=== PATIENT | female | born 1940 | race Caucasian/White ===

== ENCOUNTER 2019-01-30 13:07 | Emergency (ER) | payer OTHER, BC ==
--- NOTE | 2019-01-30 13:14 | PDOC ---
History of Present Illness - General Stated Complaint: DIZZINESS Time Seen by Provider: 01/30/19 13:13 - History of Present Illness Initial Comments: 01/30/19 13:13 Ms. More is an 78 yo female w/ pmh of alzheimer's dementia, squamous cell carcinoma of the skin, s/p cadaveric kidney transplant (unknown cause) who presents for evaluation of tiredness earlier today. Patient was discharged this morning from [facility] after admission for the last week for UTI and flu. Patient went to get food w/ family who reports she became tired and rested her head on table while at breakfast. Speech was slightly altered although son believes this was due to her face being pressed against table. EMS was called as patient would not get up; patient was back to normal self by the time EMS had arrived. Per family she has had similar instances in the past when her blood pressure dropped. Ms. More has no complaints at this time. The patient denies chest pain, shortness of breath, headache and dizziness. Denies fever, chills, nausea, vomit, diarrhea and constipation. Denies dysuria, frequency, urgency and hematuria. tPA Exclusion Checklist 0-3hr - Time Elapsed Date last known well: 01/30/19 Time last known well: 12:00 Elaspsed time: Day(s) and 3 Hour(s) and 25 Minutes - Thrombolytic Therapy Candidate Is the patient eligible for Thrombolytic Therapy?: No - Exclusion Criteria 0-3hr SBP greater than 185 or DBP greater than 110mmHg despite tx: No Recent IC/spinal surgery,head trauma or stroke w/in last 3mo: No Hx of previous IC hemorrhage, IC neoplasm, AVM or aneurysm: No Active internal bleeding: No Blding diathesis(low plt ct, inc PTT,INR>1.7 or use of NOAC): No Symptoms suggest subarachnoid hemorrhage: No CT demonstrates multilobar infarct(>1/3 cerebral hemiphere): No Arterial puncture at noncompressible site in previous 7 days: No Blood glucose concentration less than 50mg/dL (2.7mmol/L): No - Relative Exclusion Criteria 0-3h Life expectancy <1yr/severe co-morbid illness/[employer] on admit: No : No Patient/family refused: No Rapid improvement: Yes Stroke severity too mild: No Recent acute PA (w/in previous 3 months): No Seizure at onset with postictal residual neuro impairments: No Major surgery or serious trauma w/in previous 14 days: No Recent GI or hemorrhage (w/in previous 21 days): No - Ineligibility reason(s) Reasons No tPA given: See reason(s) noted above (Rapid improvement, suspect hypotension as etiology) NIH Stroke Scale - Last Known Well Date/Time & Onset Date Last Known Well: 01/30/19 Time Last Known Well: 12:00 - Initial Evaluation Level of consciousness: Alert Ask patient the month and their age: Answers both correctly Ask patient to open & close eyes; make fist and let go: Obeys both correctly Best gaze (horizontal eye movement): Normal Visual field testing: No visual field loss Facial paresis (Show teeth/raise eyebrows/close eyes tight): Normal symmetrical movement Motor Function: Left Arm: Normal Motor Function: Right Arm: Normal (extends arm 90 (or 45) degrees for 10 seconds without drift Motor Function: Left Leg: Normal (extends leg 30 degrees for 5 seconds without drift) Motor Function: Right Leg: Normal (extends leg 30 degrees for 5 seconds without drift) Limb Ataxia: No ataxia Sensory(Use pinprick test arms,legs,trunk,face/side to side): Normal Best language (Describe picture, name items, read sentences): No Aphasia Dysarthria (read several words): Normal articulation Extinction and Inattention: No abnormality - Total Score NIH Stroke Scale Score: 0 Past History - Past Medical History Allergies/Adverse Reactions: Allergies Allergy/AdvReac Type Severity Reaction Status Date / Time Penicillins Allergy Mild Rash Verified 01/30/19 13:13 Home Medications: Ambulatory Orders Levothyroxine [Synthroid -] 25 mcg PO DAILY 03/07/15 Acitretin [Soriatane (Nf)] 25 mg PO DAILY 01/30/19 Ascorbic Acid [Vitamin C] 1,000 mg PO BID 01/30/19 Biotin [Jori Biotin] 10,000 mcg PO DAILY 01/30/19 Cholecalciferol (Vitamin D3) [Vitamin D] 2,000 unit PO DAILY 01/30/19 Cyanocobalamin [Vitamin B12 -] 1,000 mcg PO DAILY 01/30/19 Donepezil HCl [Aricept -] 5 mg PO DAILY 01/30/19 Fluorouracil [Efudex] 40 gm TP BID 01/30/19 Imiquimod [Aldara] 1 each TP TID 01/30/19 Memantine HCl [Namenda -] 10 mg PO BID 01/30/19 Nifedipine [Procardia Xl] 30 mg PO DAILY 01/30/19 Sonoma-3 Fatty Acids/Dha/Epa [Ovega-3 Softgel] 1 each PO DAILY 01/30/19 Prednisone 5 mg PO DAILY 01/30/19 Sodium Bicarbonate - 650 mg PO BID 01/30/19 Tacrolimus [Prograf] 1 mg PO BID 01/30/19 Anemia: No Asthma: No Cancer: No Cardiac Disorders: No CVA: No COPD: No CHF: No Dementia: No Diabetes: No GI Disorders: Yes (COLONIC POLYPS) Disorders: Yes (ESRD..DIALYSIS //FRI) HTN: (HYPOTENSION.) Hypercholesterolemia: No Liver Disease: No Seizures: No Thyroid Disease: Yes (HYPOTHYROIDISM) - Surgical History Abdominal Surgery: No Appendectomy: No Cardiac Surgery: No Cholecystectomy: No Lung Surgery: No Neurologic Surgery: No Orthopedic Surgery: Yes (RIGHT ANKLE SURGERY, MANY YEARS AGO) - Suicide/Smoking/Psychosocial Hx Smoking History: Former smoker Have you smoked in the past 12 months: No Number of Cigarettes Smoked Daily: 0 If you are a former smoker, when did you quit?: 1975 Hx Alcohol Use: Yes Drug/Substance Use Hx: No Substance Use Type: Alcohol Hx Substance Use Treatment: No Review of Systems - Review of Systems Comments:: 01/30/19 13:13 GENERAL/CONSTITUTIONAL: +Weakness earlier as described (now resolved). No fever or chills. HEAD, EYES, EARS, NOSE AND THROAT: No change in vision. No ear pain or discharge. No sore throat. CARDIOVASCULAR: No chest pain or shortness of breath RESPIRATORY: No cough, wheezing, or hemoptysis. GASTROINTESTINAL: No nausea, vomiting, diarrhea or constipation. GENITOURINARY: No dysuria, frequency, or change in urination. MUSCULOSKELETAL: No joint or muscle swelling or pain. No neck or back pain. SKIN: No rash NEUROLOGIC: No headache, vertigo, loss of consciousness, or change in strength/ sensation. ENDOCRINE: No increased thirst. No abnormal weight change HEMATOLOGIC/LYMPHATIC: No anemia, easy bleeding, or history of blood clots. ALLERGIC/IMMUNOLOGIC: No hives or skin allergy. *Physical Exam - Physical Exam Comments: 01/30/19 13:13 GENERAL: Awake, alert, and fully oriented, in no acute distress HEAD: No signs of trauma, normocephalic, atraumatic EYES: PERRLA, EOMI, sclera anicteric, conjunctiva clear ENT: Auricles normal inspection, hearing grossly normal, nares patent, oropharynx clear without exudates. Moist mucosa NECK: Normal ROM, supple, no lymphadenopathy, JVD, or masses LUNGS: No distress, speaks full sentences, clear to auscultation bilaterally HEART: Regular rate and rhythm, normal S1 and S2, no murmurs, rubs or gallops, peripheral pulses normal and equal bilaterally. ABDOMEN: Soft, nontender, normoactive bowel sounds. No guarding, no rebound. No masses EXTREMITIES: Normal inspection, Normal range of motion, no edema. No clubbing or cyanosis. NEUROLOGICAL: Cranial nerves II through XII grossly intact. Normal speech, normal gait, no focal sensorimotor deficits SKIN: Warm, Dry, normal turgor, no rashes or lesions noted. ED Treatment Course - LABORATORY CBC & Chemistry Diagram: 01/30/19 14:15 01/30/19 14:15 Medical Decision Making - Medical Decision Making 01/30/19 15:25 Ms. More is an 78 yo female w/ pmh as described who presents for evaluation of symptoms concerning for acute neurological process vs. uti vs. hypotension. Patient evaluated with labs as below. Patient unable to provide urine sample and family refused cath. Patient noted to have repeat episode of weakness while urinating. Head CT negative. Family believes patient to be dehydrated and would like to leave against medical advice. Discussed with family that while this is possible we are unable to ensure no other acute process at this time. Family verbalized understanding and will bring Jesusita directly back should any changes occur. Creatinine elevation likewise discussed with family. Patient signed out AMA. Laboratory Results - last 24 hr 01/30/19 01/30/19 14:15 14:15 WBC 10.5 H RBC 4.44 Hgb 12.9 Hct 39.2 D MCV 88.2 MCH 29.0 MCHC 32.8 RDW 14.0 D Plt Count 441 H MPV 7.6 Absolute Neuts (auto) 9.3 H Neutrophils % 88.6 H D Lymphocytes % 7.2 L D Monocytes % 3.3 L Eosinophils % 0.2 D Basophils % 0.7 Nucleated RBC % 0 Sodium 143 Potassium 3.5 Chloride 110 H Carbon Dioxide 22 Anion Gap 11 BUN 27 H Creatinine 2.0 H Creat Clearance w eGFR 23.97 Random Glucose 185 H Calcium 9.3 Total Bilirubin 0.2 AST 30 ALT 28 Alkaline Phosphatase 118 H Total Protein 6.6 Albumin 2.6 L *DC/Admit/Observation/Transfer Diagnosis at time of Disposition: Weakness Altered mental status Qualifiers: Altered mental status type: unspecified Qualified Code(s): R41.82 - Altered mental status, unspecified - Discharge Dispostion Disposition: AGAINST MEDICAL ADVICE - Referrals - Patient Instructions Printed Discharge Instructions: DI for Altered Mental Status Additional Instructions: Jesusita was evaluated today in the ER for her weakness. We performed head CT which was negative as well as laboratory analysis which revealed an increase in creatinine signifying possible kidney problems. You refused a catheterization for urine. We found no acute process at this time however are unable to explain symptoms. You elected to sign out against medical advice. Please follow-up with primary care provider next week for further evaluation. Return to ER immediately if any change in mental status, increase in weakness, or other neurological symptoms. - Post Discharge Activity
[2019-01-30 13:18] VITALS: BMI 23.6
[2019-01-30 14:24] LABS: BASO % 0.7 % (0-2.0); EOS % 0.2 % (0-4.5); HEMATOCRIT 39.2 % (32.4-45.2); HEMOGLOBIN 12.9 GM/dL (10.7-15.3); LYMPH % 7.2 % (8-40); MCHC 32.8 g/dl (32.0-36.0); MEAN CELL VOLUME 88.2 fl (80-96); MEAN PLT VOLUME 7.6 fl (7.5-11.1); MONO % 3.3 % (3.8-10.2); NEUT % 88.6 % (42.8-82.8); PLATELET COUNT 441 K/MM3 (134-434); RBC 4.44 M/mm3 (3.60-5.2); WHITE BLOOD COUNT 10.5 K/mm3 (4.0-10.0)
[2019-01-30 14:52] LABS: ALBUMIN 2.6 g/dl (3.4-5.0); ALK PHOS 118 U/L (45-117); ANION GAP 11 MMOL/L (8-16); BILIRUBIN,TOTAL 0.2 mg/dL (0.2-1); BLOOD UREA NITROGEN 27 mg/dL (7-18); CALCIUM 9.3 mg/dL (8.5-10.1); CHLORIDE 110 mmol/L (98-107); CO2 22 mmol/L (21-32); GLUCOSE,RANDOM 185 mg/dL (74-106); POTASSIUM 3.5 mmol/L (3.5-5.1); SGOT/AST 30 U/L (15-37); SGPT/ALT 28 U/L (13-61); SODIUM 143 mmol/L (136-145); TOT PROT 6.6 g/dl (6.4-8.2)
--- NOTE | 2019-01-30 15:47 | PDOC ---
Documentation entered by Magalys Odonnell SCRIBE, acting as scribe for Kim Tariq MD. Kim Tariq MD: This documentation has been prepared by the Blas rehman Nirvannie, SCRIBE, under my direction and personally reviewed by me in its entirety. I confirm that the documentation accurately reflects all work, treatment, procedures, and medical decision making performed by me. Attending Attestation - Resident Resident Name: Trevon Awan - ED Attending Attestation I have performed the following: I have examined & evaluated the patient, The case was reviewed & discussed with the resident, I agree w/resident's findings & plan - HPI HPI: 01/30/19 14:22 The patient is a 78 year old female, with a significant past medical history of alzheimer's dementia, SCC of the skin, s/p cadaveric kidney transplant who presents to the emergency department s/p episode of dizziness Pt s/p recent 1 week admission to [facility] for UTI, treated with Meropenam and discharged on Fosfomycin. Pt was weak discharge, noted to put her head down in the [address] diner No fevers Pt has not been sleeping well No nausea, vomiting, diarrhea She denies recent dysuria, frequency, urgency or hematuria. She denies recent chest pain or shortness of breath. Allergies: Penicillins. Primary Care Physician: Dr. Pierre 01/30/19 15:32 - Physicial Exam PE: 01/30/19 15:34 GENERAL: The patient is in no acute distress. ENT: Ears normal, nares patent, oropharynx clear without exudates. Moist mucous membranes. NECK: Normal range of motion, supple LUNGS: Breath sounds equal, clear to auscultation bilaterally. No wheezes, and no crackles. HEART:Regular rate and rhythm, normal S1 and S2 ABDOMEN: Soft, nontender EXTREMITIES: Normal range of motion NEUROLOGICAL: Cranial nerves II through XII grossly intact. Normal speech. Pt walked to the bathroom with (+) dizziness SKIN: Warm, Dry, normal turgor, no rashes or lesions noted. - Medical Decision Making 01/30/19 15:15 this is an 78 Laboratory Tests 01/30/19 01/30/19 14:15 14:15 WBC 10.5 H Hgb 12.9 Hct 39.2 D Plt Count 441 H BUN 27 H Creatinine 2.0 H 01/30/19 15:37 We have reviewed this patient's labs from earlier today Cr was 1.5 We are concerned that she is orthostatic and dehydrated Pt family refusing to keep her in the hospital for IVF They are going on a trip tomorrow to [facility] (what they describe as her last trip) and do not want to miss this trip We have reminded them that if she gets worse, she will not be monitored They would like to po hydrate her and then see if she can make it on the trip they are leaving AMA
[2019-01-30 16:14] VITALS: BP 115/74; PULSE 65; TEMP 98.1
== END 2019-01-30 15:50 | disposition left against medical advice (07) ==
LOC: JER 13:07
DX: R53.1 Weakness (principal); R41.82 Altered mental status, unspecified; I95.9 Hypotension, unspecified; E03.9 Hypothyroidism, unspecified; Z86.010 Personal history of colon polyps; Z87.440 Personal history of urinary (tract) infections; Z88.0 Allergy status to penicillin; Z94.0 Kidney transplant status; Z85.828 Personal history of other malignant neoplasm of skin
CPT/HCPCS: 36415; 70450-TC; 80053; 85025; 99285-25

== ENCOUNTER 2019-05-31 08:59 | Observation (INO) | payer OTHER, BC ==
--- NOTE | 2019-05-31 09:07 | PDOC ---
History of Present Illness - General Stated Complaint: FALL Time Seen by Provider: 05/31/19 09:07 History Source: Patient, Family Exam Limitations: Dementia - History of Present Illness Initial Comments: 79 year old female with PMH HTN, hypothyroidism, ESRD s/p kidney transplant (x3 years ago), dementia, UTI requiring IV antibiotic treatment BIBA to ED from [facility] after being found down. Pt reported she does not remember falling. Family at bedside reported they were called by [facility] around 0750 after being found down. Pt denied all complaints. Family stated pt was complaining of neck pain when EMS arrived, prompting them to place her in the c-collar. Allergies: PCN Paulette More - [phone] -Daughter, Healthcare Proxy Sudheer More - [phone] -Work: -Son Past History - Past Medical History Allergies/Adverse Reactions: Allergies Allergy/AdvReac Type Severity Reaction Status Date / Time Penicillins Allergy Mild Rash Verified 05/31/19 09:28 Home Medications: Ambulatory Orders Levothyroxine [Synthroid -] 25 mcg PO DAILY 03/07/15 Acitretin [Soriatane (Nf)] 25 mg PO DAILY 01/30/19 Ascorbic Acid [Vitamin C] 1,000 mg PO BID 01/30/19 Biotin [Jori Biotin] 10,000 mcg PO DAILY 01/30/19 Cholecalciferol (Vitamin D3) [Vitamin D] 2,000 unit PO DAILY 01/30/19 Cyanocobalamin [Vitamin B12 -] 1,000 mcg PO DAILY 01/30/19 Donepezil HCl [Aricept -] 5 mg PO DAILY 01/30/19 Fluorouracil [Efudex] 40 gm TP BID 01/30/19 Imiquimod [Aldara] 1 each TP TID 01/30/19 Memantine HCl [Namenda -] 10 mg PO BID 01/30/19 Nifedipine [Procardia Xl] 30 mg PO DAILY 01/30/19 Otho-3 Fatty Acids/Dha/Epa [Ovega-3 Softgel] 1 each PO DAILY 01/30/19 Prednisone 5 mg PO DAILY 01/30/19 Sodium Bicarbonate - 650 mg PO BID 01/30/19 Tacrolimus [Prograf] 1 mg PO BID 01/30/19 Anemia: No Asthma: No Cancer: No Cardiac Disorders: No CVA: No COPD: No CHF: No Dementia: No Diabetes: No GI Disorders: Yes (COLONIC POLYPS) Disorders: Yes (ESRD..DIALYSIS //FRI) HTN: (HYPOTENSION.) Hypercholesterolemia: No Liver Disease: No Seizures: No Thyroid Disease: Yes (HYPOTHYROIDISM) - Surgical History Abdominal Surgery: No Appendectomy: No Cardiac Surgery: No Cholecystectomy: No Lung Surgery: No Neurologic Surgery: No Orthopedic Surgery: Yes (RIGHT ANKLE SURGERY, MANY YEARS AGO) - Suicide/Smoking/Psychosocial Hx Smoking History: Former smoker Have you smoked in the past 12 months: No Number of Cigarettes Smoked Daily: 0 If you are a former smoker, when did you quit?: 1974 Hx Alcohol Use: Yes Drug/Substance Use Hx: No Substance Use Type: Alcohol Hx Substance Use Treatment: No Review of Systems - Review of Systems Able to Perform ROS?: Yes Comments:: General: denied fever, chills, generalized weakness. HEENT: denied sore throat, rhinorrhea, ear pain. Cardiovascular: denied chest pain, palpitations, syncope, diaphoresis. Respiratory: denied shortness of breath, cough, sputum production, hemoptysis. Gastrointestinal: denied abdominal pain, nausea, vomiting, diarrhea, constipation, blood in stool. Genitourinary: denied dysuria, increased urinary frequency, hematuria, urinary incontinence, flank pain. Back: denied back pain. Musculoskeletal: denied joint pain, muscle pain, joint swelling. Neurological: denied headache, dizziness, numbness, tingling, weakness. Integumentary: denied rash, laceration, abrasion. Hematologic/Lymphatic: denied bruising or bleeding. *Physical Exam - Physical Exam Comments: Constitutional: Well-nourished, Well-developed, appearing stated age. HEENT: head is normocephalic, atraumatic. EOMI. PERRLA. Neck: in c-collar. supple. Full ROM without pain or difficulty when c-collar removed. Cardiovascular: regular heart rhythm. no murmurs. no pericardial friction rub. Chest: no anterior chest wall tenderness to palpation. Respiratory: clear to auscultation bilaterally. no crackles, rhonchi or wheezing. no stridor. Gastrointestinal: soft, nontender. normal bowel sounds. no rebound, guarding, masses. Back: negative for midline T-spine, C-spine or L-spine tenderness. no bruising to back. no step offs. Hips: LE equal in length without external rotation. no hip tenderness bilaterally. Extremities: peripheral pulses intact. no lower extremity edema. 2+ DSP bilaterally. Neurological: resting tremor to bilateral hands. CN 2-12 grossly intact. moves all four extremities. Psych: awake, alert, oriented x3. follows commands. answers questions appropriately. ED Treatment Course - LABORATORY CBC & Chemistry Diagram: 05/31/19 10:08 05/31/19 10:08 Medical Decision Making - Medical Decision Making 79 year old female with above PMH BIBA to ED after being found down today. Pt has no memory of the event. Initial Vital Signs Temp Pulse Resp BP Pulse Ox 97.3 F L 67 18 186/78 H 97 05/31/19 09:00 05/31/19 09:00 05/31/19 09:00 05/31/19 09:00 05/31/19 09:00 Afebrile. No tachycardia. No tachypnea. Hypertensive. No hypoxia on room air. Labs ordered: CBC, CMP, coags, T&S, troponin Imaging ordered: CT head, CT cervical spine, CXR, pelvis XR Medications ordered: tylenol IV once, normal saline bolus 1000 cc once C-collar removed after examination. EKG performed at 0910: rate 68, regular rhythm, normal axis, QTc 480, no acute ST changes. 05/31/19 11:27 CBC WBC 13.4 K/mm3 (4.0-10.0) H 05/31/19 10:08 RBC 4.03 M/mm3 (3.60-5.2) 05/31/19 10:08 Hgb 11.1 GM/dL (10.7-15.3) 05/31/19 10:08 Hct 34.1 % (32.4-45.2) 05/31/19 10:08 MCV 84.6 fl (80-96) 05/31/19 10:08 MCH 27.6 pg (25.7-33.7) 05/31/19 10:08 MCHC 32.6 g/dl (32.0-36.0) 05/31/19 10:08 RDW 16.4 % (11.6-15.6) H 05/31/19 10:08 Plt Count 365 K/MM3 (134-434) 05/31/19 10:08 MPV 8.0 fl (7.5-11.1) 05/31/19 10:08 Absolute Neuts (auto) 11.1 K/mm3 (1.5-8.0) H 05/31/19 10:08 Neutrophils % 82.9 % (42.8-82.8) H 05/31/19 10:08 Lymphocytes % 9.8 % (8-40) D 05/31/19 10:08 Monocytes % 6.0 % (3.8-10.2) D 05/31/19 10:08 Eosinophils % 0.4 % (0-4.5) D 05/31/19 10:08 Basophils % 0.9 % (0-2.0) 05/31/19 10:08 Nucleated RBC % 0 % (0-0) 05/31/19 10:08 Leukocytosis with left shift. No anemia. CMP Sodium 142 mmol/L (136-145) 05/31/19 10:08 Potassium 3.9 mmol/L (3.5-5.1) 05/31/19 10:08 Chloride 106 mmol/L (98-107) 05/31/19 10:08 Carbon Dioxide 25 mmol/L (21-32) 05/31/19 10:08 Anion Gap 10 MMOL/L (8-16) 05/31/19 10:08 BUN 49.5 mg/dL (7-18) H 05/31/19 10:08 Creatinine 1.9 mg/dL (0.55-1.3) H 05/31/19 10:08 Est GFR (CKD-EPI)AfAm 28.16 05/31/19 10:08 Est GFR (CKD-EPI)NonAf 24.30 05/31/19 10:08 Random Glucose 95 mg/dL (74-106) 05/31/19 10:08 Calcium 9.9 mg/dL (8.5-10.1) 05/31/19 10:08 Total Bilirubin 0.4 mg/dL (0.2-1) 05/31/19 10:08 AST 37 U/L (15-37) 05/31/19 10:08 ALT 43 U/L (13-61) 05/31/19 10:08 Alkaline Phosphatase 124 U/L (45-117) H 05/31/19 10:08 Troponin I < 0.02 ng/ml (0.00-0.05) 05/31/19 10:08 Total Protein 6.8 g/dl (6.4-8.2) 05/31/19 10:08 Albumin 3.1 g/dl (3.4-5.0) L 05/31/19 10:08 TSH 4.59 uIU/ml (0.358-3.74) H 05/31/19 10:08 No electrolyte abnormalities. Cr at baseline. No transaminitis. Troponin undetectable TSH mildly elevated, hx hypothyroidism. CT head report: Name: [facility] DEPARTMENT OF RADIOLOGY Phys: Noemi Epps RESIDENT : 1940 Age: 79 Sex: F [facility] Acct: [id number] Loc: [address] Exam Date: 05/31/19 Status: [place] [address] Unit Number: [id number] EXAM#: TYPE/EXAM: RESULT: [id number] CT/HEAD CT WITHOUT CONTRAST CT scan of the brain c-. Status post fall. Comparison study CT brain January 30, 2019. Findings. Serial axial images of the brain were obtained from foramen magnum to the cranial vertex without intravenous contrast. The study was supplemented with computer-generated coronal and sagittal reconstruction images. There is no evidence of acute subarachnoid hemorrhage, acute intra-axial or extra-axial fluid collection consistent with subdural or epidural hematoma. No mass effect, midline shift, acute territorial ischemic changes, herniation or edema is present. Normal forte matter white matter differentiation. Loss of volume of the brain parenchyma with involutional changes. There is dilatation of the third ventricle, lateral ventricles including temporal horns with loss of volume of the medial temporal lobes, hippocampus. .Supratentorial chronic white matter microangiopathic ischemic changes, gliosis. CSF spaces unchanged from prior examination. Examination of the bone windows show no fracture. The visualized paranasal sinuses and mastoid air cells are clear. Impression. No evidence of acute intracranial hemorrhage, edema, midline shift, mass effect, or skull fracture. No CT evidence of acute territorial ischemic changes. No interval change in comparison to CT of the brain January 30, 2019. Reported By: Calderon Parada MD 05/31/[address] cervical spine report: Name: [facility] DEPARTMENT OF RADIOLOGY Phys: Noemi Epps RESIDENT : 1940 Age: 79 Sex: F [facility] Acct: [id number] Loc: [address] Exam Date: 05/31/19 Status: REG [place] [id number] Unit Number: [id number] ACCESSION # : [id number] EXAM#: TYPE/EXAM: RESULT: CT/CERVICAL SPINE CT W/O CONTR Reason for the study. Trauma. CT scan of the cervical spine C-. Direct axial images were obtained from the base of the skull through upper thoracic spine.. The study was supplemented with computer-generated sagittal, coronal reconstruction images. Findings. Straightening of the cervical spine is noted on the sagittal reconstruction images. Intact odontoid. There is narrowing of the predental space. Normal symmetrical articulation of atlantoaxial and occipito atlantal joints. Osteoarthritis of the occipitoatlantal joints. C4-C5 C5-C6. Intervertebral disc space narrowing with degenerative endplate sclerosis. C5-C6. Anterior spondylosis. Normal alignment of the facet joints. The intraspinal contents cannot be adequately evaluated due to the beam hardening artifacts. The airways are patent. No evidence of prevertebral soft tissue swelling. The lung apices are clear. Impression. No acute fracture is seen. No evidence of subluxation. Normal alignment of the facet joints. Patent airways, no evidence of prevertebral soft tissue swelling. Reported By: Calderon Parada MD 05/31/19 1114 05/31/19 14:07 Pelvis XR report: Name: [facility] MORE DEPARTMENT OF RADIOLOGY Phys: Noemi Epps RESIDENT : 1940 Age: 79 Sex: F [facility] Acct: [id number] Loc: [address] Exam Date: 05/31/19 Status: [place] [address] Unit Number: [id number] EXAM#: TYPE/EXAM: RESULT: RAD/PELVIS Status post fall. Single AP the pelvis. Surgical clips are noted. Demineralized osseous structures. The visualized osseous structures appear intact. Symmetrical articulation of the hip joints. The symphysis pubis is not widened. Symmetrical SI joints. Impression. No acute bony abnormality seen. Surgical clips. Reported By: Calderon Parada MD 05/31/19 7685 CXR report: Name: [facility] MORE DEPARTMENT OF RADIOLOGY Phys: Noemi Epps RESIDENT : 1940 Age: 79 Sex: F [facility] Acct: [id number] Loc: [address] Exam Date: 05/31/19 Status: [facility] [place] [address] Unit Number: [id number] EXAM#: TYPE/EXAM: RESULT: [id number] RAD/CHEST PA LAT Status post fall. Chest 2 views. The cardiac silhouette is not enlarged. Uncoiled thoracic aorta. The lungs are well aerated without evidence of a pulmonary infiltrates, atelectasis. No pleural effusion, or pneumothorax is seen. Demineralized osseous structures. EKG leads are noted. Impression. No evidence of active pulmonary disease. Reported By: Calderon Parada MD 05/31/19 4603 Urine Test Results Urine Color Yellow 05/31/19 12:40 Urine Appearance Clear 05/31/19 12:40 Urine pH 6.5 (5.0-8.0) D 05/31/19 12:40 Ur Specific [place] 1.012 (1.010-1.035) 05/31/19 12:40 Urine Protein 2+ (NEGATIVE) H 05/31/19 12:40 Urine Glucose (UA) Negative (NEGATIVE) 05/31/19 12:40 Urine Ketones Negative (NEGATIVE) 05/31/19 12:40 Urine Blood Negative (NEGATIVE) 05/31/19 12:40 Urine Nitrite Negative (NEGATIVE) 05/31/19 12:40 Urine Bilirubin Negative (NEGATIVE) 05/31/19 12:40 Ur Leukocyte Esterase Negative (NEGATIVE) 05/31/19 12:40 Negative for UTI. 05/31/19 15:46 Dr. Reynold Pierre paged. 05/31/19 15:[address] Pierre, who agrees with admission for syncope rule out. Pt informed. Pending admission. *DC/Admit/Observation/Transfer Diagnosis at time of Disposition: Fall, Syncope - Discharge Dispostion Condition at time of disposition: Stable Decision to Admit order: Yes - Referrals Referrals: Reynold Pierre MD [Primary Care Provider] - - Patient Instructions - Post Discharge Activity
--- NOTE | 2019-05-31 09:09 | PDOC ---
Attending Attestation - Resident Resident Name: Noemi Epps - HPI HPI: 05/31/19 10:12 Pt presents to the Ed after found on the floor. Uncertain whether she had a fall or syncope. Daughter reports that she has been having difficulty ambulating and has been crawling to the bathroom. Also reports that she had a syncope 3 days ago, but recovered completely and did not receive a medical evaluation at that time. Patient is at the baseline mental status as per daughter. Patient is alert and oriented x 2 and denies compaints. She is unable to give a history of what happened with the fall. 05/31/19 11:31 - Physicial Exam PE: 05/31/19 11:33 Agree with resident exam. PAtient is alert and oriented and in no acute distress. Neck: no spinous processes tenderness or deformity. CV: rrr no m/r/ g. Pulm: CTA b/l abdomen: soft, non tender, non distended. ext: full ROm b/l knee and hip, no deformity. - Medical Decision Making 05/31/19 11:39 Pt presents to the ED after unwitnessed fall. Syncope vs mechanical fall. Will check lasbs and CT head and C spine to rule out intracranial or cervical spinal injury. Will admit for syncope workup.
[2019-05-31] MEDS ORDERED: ACETAMINOPHEN 1000 MG/100 ML VIAL (NON FORMULARY) IVPB ONE (09:39)
[2019-05-31] MEDS ORDERED: SODIUM CHLORIDE 1,000 ML IV STA (09:39)
[2019-05-31] MEDS ORDERED: ACETAMINOPHEN INJECTION 100 ML IVPB ONE (09:59)
[2019-05-31 10:37] LABS: BASO % 0.9 % (0-2.0); EOS % 0.4 % (0-4.5); HEMATOCRIT 34.1 % (32.4-45.2); HEMOGLOBIN 11.1 GM/dL (10.7-15.3); LYMPH % 9.8 % (8-40); MCH 27.6 pg (25.7-33.7); MCHC 32.6 g/dl (32.0-36.0); MEAN CELL VOLUME 84.6 fl (80-96); NEUT % 82.9 % (42.8-82.8); PLATELET COUNT 365 K/MM3 (134-434); RBC 4.03 M/mm3 (3.60-5.2); RDW 16.4 % (11.6-15.6); WHITE BLOOD COUNT 13.4 K/mm3 (4.0-10.0)
--- NOTE | 2019-05-31 10:39 | EKG ---
Test Reason : Blood Pressure : / mmHG Vent. Rate : 068 BPM Atrial Rate : 068 BPM P-R Int : 158 ms QRS Dur : 086 ms QT Int : 452 ms P-R-T Axes : 058 005 064 degrees QTc Int : 480 ms POOR DATA QUALITY, INTERPRETATION MAY BE ADVERSELY AFFECTED NORMAL SINUS RHYTHM PROLONGED QT ABNORMAL ECG WHEN COMPARED WITH ECG OF 07-MAR-2015 17:57, COMPARED TO EKG NO SIGNIFICANT CHANGE IS FOUND Confirmed by JEIMY MARTINEZ MD ([id number]) on 05/31/2019 10:39:33 AM Referred By: Confirmed By:JEIMY MARTINEZ MD
[2019-05-31 11:05] LABS: INR 0.99 (0.83-1.09); PROTHROMBIN TIME (PATIENT) 11.7 SEC (9.7-13.0)
[2019-05-31 11:07] LABS: ACTIVATED PTT 34.1 SECONDS (25.2-36.5)
[2019-05-31 11:12] LABS: ALBUMIN 3.1 g/dl (3.4-5.0); BILIRUBIN,TOTAL 0.4 mg/dL (0.2-1); BLOOD UREA NITROGEN 49.5 mg/dL (7-18); CALCIUM 9.9 mg/dL (8.5-10.1); CREATININE 1.9 mg/dL (0.55-1.3); POTASSIUM 3.9 mmol/L (3.5-5.1); TOT PROT 6.8 g/dl (6.4-8.2)
[2019-05-31 13:34] LABS: EPI CELLS 0.7 /HPF (0-5/HPF); HYALINE CASTS 1 /lpf (0-8); PH,URINE 6.5 (5.0-8.0); URINE APPEARANCE CLEAR; URINE BACTERIA 0.2 /hpf (NEGATIVE); URINE BILIRUBIN NEGATIVE (NEGATIVE); URINE COLOR YELLOW; URINE GLUCOSE (UA) NEGATIVE (NEGATIVE); URINE KETONE NEGATIVE (NEGATIVE); URINE LEUK ESTERASE NEGATIVE (NEGATIVE); URINE NITRITE NEGATIVE (NEGATIVE); URINE PROTEIN 2+ (NEGATIVE); URINE RBC 1 /hpf (0-4); URINE UROBILINOGEN 0.2 mg/dL (0.2-1.0); URINE WBC 1 /hpf (0-5)
[2019-05-31] MEDS ORDERED: ERTAPENEM SODIUM 0.5 GM in SODIUM CHLORIDE 50 ML IVPB ONE (18:45)
[2019-05-31] MEDS ORDERED: ACETAMINOPHEN 325 MG TABLET (FP) PO PRN (20:36)
--- NOTE | 2019-05-31 20:39 | HP ---
Admitting History and Physical - Primary Care Physician PCP: Reynold Pierre - Admission History of Present Illness: pt seen/ examined in er case discussed with Er resident/ Attending chart reviewed In summary and per er records-- Which i concur 79 year old female with PMH HTN, hypothyroidism, ESRD s/p kidney transplant (x3 years ago), dementia, UTI requiring IV antibiotic treatment, s/p PIcc Line BIBA to ED from [facility] after being found down. Pt reported she does not remember falling. Family at bedside reported [facility] after being found down. Pt denied all complaints. Family stated pt was complaining of neck pain when EMS arrived, prompting them to place her in the c- collar. work up -ve ct head ok u/a -ve currently on Enterepenam -- day 3 of 10 for esbl ekg ok Pt will be kept under observation for 24 hours History Source: Patient, Family Member, Medical Record, Caregiver Limitations to Obtaining History: Clinical Condition - Past Medical History Cardiovascular: Yes: HTN Renal/: Yes: Renal Failure, Hemodialysis Heme/Onc: Yes: Anemia Psych: Yes: Depression. No: Addictions Endocrine: Yes: Hypothyroidism - Smoking History Smoking history: Former smoker Have you smoked in the past 12 months: No Aproximately how many cigarettes per day: 0 If you are a former smoker, when did you quit?: 1974 - Alcohol/Substance Use Hx Alcohol Use: Yes - Social History ADL: Independent History of Recent Travel: No Home Medications - Allergies Allergies/Adverse Reactions: Allergies Allergy/AdvReac Type Severity Reaction Status Date / Time Penicillins Allergy Mild Rash Verified 05/31/19 09:28 - Home Medications Home Medications: Ambulatory Orders Levothyroxine [Synthroid -] 25 mcg PO DAILY 03/07/15 Acitretin [Soriatane (Nf)] 25 mg PO DAILY 01/30/19 Ascorbic Acid [Vitamin C] 1,000 mg PO BID 01/30/19 Biotin [Jori Biotin] 10,000 mcg PO DAILY 01/30/19 Cholecalciferol (Vitamin D3) [Vitamin D] 2,000 unit PO DAILY 01/30/19 Cyanocobalamin [Vitamin B12 -] 1,000 mcg PO DAILY 01/30/19 Donepezil HCl [Aricept -] 5 mg PO DAILY 01/30/19 Fluorouracil [Efudex] 40 gm TP BID 01/30/19 Imiquimod [Aldara] 1 each TP TID 01/30/19 Memantine HCl [Namenda -] 10 mg PO BID 01/30/19 Nifedipine [Procardia Xl] 30 mg PO DAILY 01/30/19 [place]-3 Fatty Acids/Dha/Epa [Ovega-3 Softgel] 1 each PO DAILY 01/30/19 Prednisone 5 mg PO DAILY 01/30/19 Sodium Bicarbonate - 650 mg PO BID 01/30/19 Tacrolimus [Prograf] 1 mg PO BID 01/30/19 Review of Systems Findings/Remarks: see [place] Physical Examination Vital Signs: Vital Signs Temperature 97.3 F L 05/31/19 09:00 Pulse Rate 67 05/31/19 09:00 Respiratory Rate 18 05/31/19 09:00 Blood Pressure 186/78 H 05/31/19 09:00 O2 Sat by Pulse Oximetry (%) 97 05/31/19 09:00 Constitutional: Yes: No Distress, Calm Eyes: Yes: WNL, Conjunctiva Clear, PERRL Neck: Yes: Supple Cardiovascular: Yes: Regular Rate and Rhythm Respiratory: Yes: Regular Gastrointestinal: Yes: Normal Bowel Sounds, Soft Edema: No Neurological: Yes: WNL, Alert, Cran Nerves II-XII Intact Labs: CBC, BMP 05/31/19 10:08 05/31/19 10:08 Imaging - Results Chest X-ray: Report Reviewed Cat Scan: Report Reviewed EKG: Report Reviewed Problem List - Problems (1) UTI due to extended-spectrum beta lactamase (ESBL) producing Escherichia coli Code(s): N39.0 - URINARY TRACT INFECTION, SITE NOT SPECIFIED; B96.29 - OTH ESCHERICHIA COLI THE CAUSE OF DISEASES CLASSD ELSWHR; Z16.12 - EXTENDED SPECTRUM BETA LACTAMASE (ESBL) RESISTANCE (2) Syncope Code(s): R55 - SYNCOPE AND COLLAPSE (3) 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
[2019-05-31] MEDS ORDERED: IMIQUIMOD TP SCH (22:00)
[2019-05-31] MEDS ORDERED: FLUOROURACIL TP SCH (22:00)
[2019-06-01] MEDS: MEMANTINE HCL 10 MG TABLET (FP) PO SCH ×3 (01:37→22:32)
[2019-06-01] MEDS: TACROLIMUS ANHYDROUS 1 MG CAPSULE PO SCH ×3 (01:37→22:33)
[2019-06-01] MEDS: HEPARIN NA (PORCINE) 5,000 UNITS/ML 1ML VIAL SQ SCH ×3 (01:37→22:32)
[2019-06-01] MEDS: SODIUM BICARBONATE 650 MG TABLET PO SCH ×3 (01:37→22:32)
[2019-06-01] MEDS: ASCORBIC ACID 500 MG TABLET (FP) PO SCH ×3 (01:38→22:32)
[2019-06-01] MEDS ORDERED: LEVOTHYROXINE NA 25 MCG TABLET (FP) ONE (06:07)
[2019-06-01] MEDS: LEVOTHYROXINE NA 25 MCG TABLET (FP) PO SCH (07:20)
[2019-06-01] MEDS ORDERED: BIOTIN 10000 MCG PO SCH (10:00)
[2019-06-01] MEDS ORDERED: ACITRETIN 25 MG PO SCH (10:00)
--- NOTE | 2019-06-01 10:18 | PN ---
Progress Note (short form) - Note Progress Note: Pt examined in ER anxious and forgetful no distress no headaches does not remember events Vitals and labs noted Head CT x 2 negative Carotid doppler pending S1 S2 RRR Lungs clear Abd- soft, NT no edema PLAN Will check carotid doppler Tele monitoring overnight BP control dc plan if ok in AM Problem List - Problems (1) Fall Code(s): W19.XXXA - UNSPECIFIED FALL, INITIAL ENCOUNTER (2) Syncope Code(s): R55 - SYNCOPE AND COLLAPSE (3) UTI due to extended-spectrum beta lactamase (ESBL) producing Escherichia coli Code(s): N39.0 - URINARY TRACT INFECTION, SITE NOT SPECIFIED; B96.29 - OTH ESCHERICHIA COLI THE CAUSE OF DISEASES CLASSD ELSWHR; Z16.12 - EXTENDED SPECTRUM BETA LACTAMASE (ESBL) RESISTANCE (4) Altered mental status Code(s): R41.82 - ALTERED MENTAL STATUS, UNSPECIFIED Qualifiers: Altered mental status type: unspecified Qualified Code(s): R41.82 - Altered mental status, unspecified
[2019-06-01] MEDS: NIFEdipine E.R. 30 MG TABLET (FP) PO SCH (11:32)
[2019-06-01] MEDS: predniSONE 5 MG TABLET (UD) PO SCH (11:32)
[2019-06-01] MEDS: CHOLECALCIFEROL (VIT D3) 1,000 UNIT (25 MCG) TABLET PO SCH (11:33)
[2019-06-01] MEDS: CYANOCOBALAMIN 1,000 MCG TABLET (FP) PO SCH (11:33)
[2019-06-01 19:54] VITALS: BMI 25.8
[2019-06-01] MEDS ORDERED: PT OWN MED DRAWER 7, Y5N ONE (21:46)
[2019-06-01] MEDS ORDERED: DONEPEZIL HCL 5 MG TABLET (FP) PO SCH (22:00)
[2019-06-01 22:41] LABS: ALBUMIN 3.3 g/dl (3.4-5.0); ALK PHOS 136 U/L (45-117); ANION GAP 12 MMOL/L (8-16); BILIRUBIN,TOTAL 0.3 mg/dL (0.2-1); BLOOD UREA NITROGEN 40.6 mg/dL (7-18); CALCIUM 9.7 mg/dL (8.5-10.1); CHLORIDE 105 mmol/L (98-107); CO2 25 mmol/L (21-32); CREATININE 1.6 mg/dL (0.55-1.3); GLUCOSE,RANDOM 96 mg/dL (74-106); POTASSIUM 3.8 mmol/L (3.5-5.1); SGOT/AST 48 U/L (15-37); SGPT/ALT 46 U/L (13-61); SODIUM 141 mmol/L (136-145); TOT PROT 7.1 g/dl (6.4-8.2)
[2019-06-01 22:44] LABS: BASO % 0.3 % (0-2.0); EOS % 0.4 % (0-4.5); LYMPH % 17.9 % (8-40); MCH 27.9 pg (25.7-33.7); MCHC 33.4 g/dl (32.0-36.0); MEAN CELL VOLUME 83.7 fl (80-96); MEAN PLT VOLUME 7.9 fl (7.5-11.1); MONO % 7.3 % (3.8-10.2); NEUT % 74.1 % (42.8-82.8); PLATELET COUNT 375 K/MM3 (134-434); RBC 3.94 M/mm3 (3.60-5.2); RDW 15.9 % (11.6-15.6); WHITE BLOOD COUNT 10.9 K/mm3 (4.0-10.0)
[2019-06-01 23:11] LABS: ALBUMIN 2.8 g/dl (3.4-5.0); ALK PHOS 133 U/L (45-117); ANION GAP 9 MMOL/L (8-16); BILIRUBIN,TOTAL 0.3 mg/dL (0.2-1); BLOOD UREA NITROGEN 43.6 mg/dL (7-18); CALCIUM 9.2 mg/dL (8.5-10.1); CHLORIDE 106 mmol/L (98-107); CO2 24 mmol/L (21-32); CREATININE 1.6 mg/dL (0.55-1.3); GLUCOSE,RANDOM 101 mg/dL (74-106); POTASSIUM 4.1 mmol/L (3.5-5.1); SGOT/AST 48 U/L (15-37); SGPT/ALT 46 U/L (13-61); SODIUM 140 mmol/L (136-145); TOT PROT 6.5 g/dl (6.4-8.2)
[2019-06-02] MEDS ORDERED: hydrALAZINE HCL 10 MG TABLET PO ONE (00:08)
[2019-06-02] MEDS: LEVOTHYROXINE NA 25 MCG TABLET (FP) PO SCH (06:04)
[2019-06-02] MEDS ORDERED: PT OWN MED DRAWER 7, Y5N ONE (10:14)
[2019-06-02] MEDS: NIFEdipine E.R. 30 MG TABLET (FP) PO SCH (10:19)
[2019-06-02] MEDS: predniSONE 5 MG TABLET (UD) PO SCH (10:19)
[2019-06-02] MEDS: CYANOCOBALAMIN 1,000 MCG TABLET (FP) PO SCH (10:20)
[2019-06-02] MEDS: CHOLECALCIFEROL (VIT D3) 1,000 UNIT (25 MCG) TABLET PO SCH (10:20)
[2019-06-02] MEDS: ASCORBIC ACID 500 MG TABLET (FP) PO SCH (10:20)
[2019-06-02] MEDS: SODIUM BICARBONATE 650 MG TABLET PO SCH (10:21)
[2019-06-02] MEDS: MEMANTINE HCL 10 MG TABLET (FP) PO SCH (10:22)
[2019-06-02] MEDS: TACROLIMUS ANHYDROUS 1 MG CAPSULE PO SCH (10:22)
[2019-06-02] MEDS: HEPARIN NA (PORCINE) 5,000 UNITS/ML 1ML VIAL SQ SCH (10:22)
--- NOTE | 2019-06-02 12:34 | DS ---
Physical Examination Vital Signs: Vital Signs Temperature 97.9 F 06/02/19 06:00 Pulse Rate 74 06/02/19 06:00 Respiratory Rate 20 06/02/19 06:00 Blood Pressure 149/85 06/02/19 06:00 O2 Sat by Pulse Oximetry (%) 97 06/02/19 04:00 Constitutional: Yes: No Distress Cardiovascular: Yes: Regular Rate and Rhythm Respiratory: Yes: CTA Bilaterally Gastrointestinal: Yes: Normal Bowel Sounds, Soft. No: Tenderness Edema: No Labs: CBC, BMP 06/01/19 21:55 06/01/19 21:55 Discharge Summary Reason For Visit: SYNCOPE,FALL Current Active Problems Fall (Acute) Syncope (Acute) UTI due to extended-spectrum beta lactamase (ESBL) producing Escherichia coli ( Acute) Hospital Course: s/p fall found on the floor in [place] Admitted to rule out syncope Carotid doppler negative labs unremarkable Cardiac enzymes negative CT head x 2 negative stable for dc to [place] resume Ertapenum-- she received a dose today Condition: Stable - Instructions Disposition: NURSING HOME FACILITY - Home Medications Comprehensive Discharge Medication List: Ambulatory Orders Levothyroxine [Synthroid -] 25 mcg PO DAILY 03/07/15 Acitretin [Soriatane (Nf)] 25 mg PO DAILY 01/30/19 Ascorbic Acid [Vitamin C] 1,000 mg PO BID 01/30/19 Cholecalciferol (Vitamin D3) [Vitamin D] 2,000 unit PO DAILY 01/30/19 Cyanocobalamin [Vitamin B12 -] 1,000 mcg PO DAILY 01/30/19 Memantine HCl [Namenda -] 10 mg PO BID 01/30/19 Nifedipine [Procardia Xl] 30 mg PO DAILY 01/30/19 Prednisone 5 mg PO DAILY 01/30/19 Sodium Bicarbonate - 650 mg PO BID 01/30/19 Tacrolimus [Prograf] 2 mg PO BID 01/30/19 Aripiprazole [Abilify] 5 mg PO HS 06/01/19 Ertapenem Sodium - 1 Gram [Invanz (Pre-Docked)] 0.5 gm IVPB DAILY 06/01/19 Galantamine HBr [Razadyne ER] 8 mg PO DAILY 06/01/19 Hydrochlorothiazide 25 mg PO DAILY 06/01/19 traZODone HCL [Trazodone HCl] 50 mg PO HS 06/01/19
[2019-06-02] MEDS ORDERED: ERTAPENEM SODIUM 0.5 GM in SODIUM CHLORIDE 50 ML IVPB ONE (13:30)
[2019-06-02 20:02] VITALS: BP 163/119; PULSE 93; TEMP 97
== END 2019-06-02 17:36 ==
LOC: JER 08:59 → JERBED 15:52 → J4S 06-01 19:03
PROVIDERS: ADMIT Internal Medicine; ATTEND Internal Medicine
PROC: 3E03329 Introduction of Other Anti-infective into Peripheral Vein, Percutaneous Approach (ICD-10-PCS; principal; 2019-05-31)
PROC: 3E033NZ Introduction of Analgesics, Hypnotics, Sedatives into Peripheral Vein, Percutaneous Approach (ICD-10-PCS; 2019-05-31)
PROC: 3E0337Z Introduction of Electrolytic and Water Balance Substance into Peripheral Vein, Percutaneous Approach (ICD-10-PCS; 2019-05-31)
PROC: 3E013GC Introduction of Other Therapeutic Substance into Subcutaneous Tissue, Percutaneous Approach (ICD-10-PCS; 2019-05-31)
DX: R55 Syncope and collapse (principal); N39.0 Urinary tract infection, site not specified; B96.29 Other Escherichia coli [E. coli] as the cause of diseases classified elsewhere; Z16.12 Extended spectrum beta lactamase (ESBL) resistance; N03.9 Chronic nephritic syndrome with unspecified morphologic changes; D63.1 Anemia in chronic kidney disease; I25.10 Atherosclerotic heart disease of native coronary artery without angina pectoris; I12.0 Hypertensive chronic kidney disease with stage 5 chronic kidney disease or end stage renal disease; Z99.2 Dependence on renal dialysis; N18.6 End stage renal disease; Z87.891 Personal history of nicotine dependence; Z94.0 Kidney transplant status; R41.82 Altered mental status, unspecified; F03.90 Unspecified dementia, unspecified severity, without behavioral disturbance, psychotic disturbance, mood disturbance, and anxiety; E03.9 Hypothyroidism, unspecified; D72.829 Elevated white blood cell count, unspecified; Z88.0 Allergy status to penicillin; W18.30XA Fall on same level, unspecified, initial encounter; Z91.81 History of falling; Y93.9 Activity, unspecified; Y92.129 Unspecified place in nursing home as the place of occurrence of the external cause
CPT/HCPCS: 36415; 70450-TC; 71046-TC-FY; 72125-TC; 72170-TC-FY; 80053; 81003; 82550; 84443; 84484; 85025; 85610; 85730; 86850; 86900; 86901; 93005; 93010; 93880-TC; 96361; 96365; 96367; 96372; 96375; 99285-25; G0378; J0131; J1644; J7030